=== PATIENT | female | born 2000 | race Two or more races ===

== ENCOUNTER 2024-09-07 02:05 | Emergency (ER) | payer MEDICAID, SELFPAY ==
[2024-09-07 02:06] VITALS: BMI 35.5
--- NOTE | 2024-09-07 02:12 | PD.EDURI ---
Upper Respiratory Inf. RME/HPI General Chief Complaint: Flu Like Symptoms Stated Complaint: FEVER, COUGH, CONGESTION Time Seen by Provider: 09/07/24 02:14 Source: patient Arrival date/time: 09/07/24 02:05 24-year-old female with no known medical history presents to the emergency room with a chief complaint of fever, cough, congestion, nausea, vomiting x 2 days Mode of arrival: ambulatory Limitations: no limitations Related Data Previous Rx's ?Medication ?Instructions ?Recorded ibuprofen 800 mg tablet 800 mg PO TID PRN pain #30 tabs 02/08/22 gabapentin 300 mg tablet,extended 300 mg PO QPM #20 tabs 03/07/24 release 24 hr Allergies Allergy/AdvReac Type Severity Reaction Status Date / Time No Known Allergies Allergy Verified 03/07/24 19:51 Review of Systems Review of Systems Systems Reviewed: All systems reviewed, normal except as documented Constitutional Constitutional: Reports system reviewed and no additional complaints, except as documented, Reports body ache(s), Reports fatigue, Reports fever(s), Reports headache(s) and Reports weakness Eyes Eyes: Reports system reviewed and no additional complaints, except as documented, Denies blurry vision and Denies change in vision ENT Ears, Nose, Mouth, and Throat: Reports system reviewed and no additional complaints, except as documented, Denies otalgia, Reports headache(s), Denies nasal congestion, Denies throat swelling and Denies vertigo Cardiovascular Cardiovascular: Reports system reviewed and no additional complaints, except as documented, Denies chest pain, Denies dyspnea and Denies dyspnea on exertion Respiratory Respiratory: Reports system reviewed and no additional complaints, except as documented, Denies chest congestion, Reports cough, Denies dyspnea, Denies dyspnea on exertion and Denies wheezing Gastrointestinal Gastrointestinal: Reports system reviewed and no additional complaints, except as documented, Denies abdominal pain, Denies cramping, Denies nausea and Denies vomiting Genitourinary Genitourinary: Reports system reviewed and no additional complaints, except as documented Musculoskeletal Musculoskeletal: Reports system reviewed and no additional complaints, except as documented and Denies back pain Integumentary/Breasts Skin/Breast: Reports system reviewed and no additional complaints, except as documented and Denies wounds Neurologic Neurologic: Reports system reviewed and no additional complaints, except as documented, Denies confusion, Reports headache(s), Denies lack of coordination, Denies vertigo and Reports weakness Psychiatric Psychiatric: Reports system reviewed and no additional complaints, except as documented, Denies anxiety, Denies confusion, Denies depression, Denies paranoia, Denies suicidal ideation and Denies tactile hallucinations Endocrine Endocrine: Reports system reviewed and no additional complaints, except as documented and Reports fatigue Hematologic/Lymphatic Hematologic/Lymphatic: Reports system reviewed and no additional complaints, except as documented and Denies lymphadenopathy Allergic/Immunologic Allergic/Immunologic: Reports system reviewed and no additional complaints, except as documented, Denies throat swelling, Denies urticaria and Denies wheezing Past Medical History Past Medical History NEUROLOGIC: Positive Head Trauma (18yo had to get stitches); Negative Neurological Disorders or Seizures CARDIAC: Negative Cardiac Disorders or Congestive Heart Failure RESPIRATORY: Negative Chronic Obstructive Pulmonary Disease (COPD) GASTROINTESTINAL: Negative Gastrointestinal Disorders GENITOURINARY: Negative Genitourinary Disorders or Renal Disease REPRODUCTIVE: Negative Pelvic Inflammatory Disease MUSCULOSKELETAL: Positive Musculoskeletal Disorders and Scoliosis ENT: Positive Head Trauma (18yo had to get stitches) ENDOCRINE: Negative Endocrine Disorders, Diabetes Mellitus Type 1 or Diabetes Mellitus Type 2 HEMATOLOGIC: Negative Blood Disorders OTHER HISTORY: Negative Autoimmune Disease, Blood Transfusions, Blood Transfusion Reaction, Anesthesia Reactions, MRSA, Chicken Pox, Clostridium Difficile or Cancer Family History FAMILY HISTORY: Positive Family Surgery (sister); Negative Family Psychiatric Problems, Family Respiratory Disorders, Family Cardiac Disorders, Family Gastrointestinal Problems, Family Cancer or Family Anesthesia Reaction Social History SMOKING STATUS: Never smoker ED Exam General Limitations: Present no limitations General appearance: Present alert and in no apparent distress Head Head exam: Present atraumatic Eye Eye exam: Present normal appearance, PERRL and EOMI ENT ENT exam: Present normal exam, normal oropharynx and mucous membranes moist Neck Neck exam: Present normal inspection, full ROM and trachea midline Chest Chest inspection: Present normal inspection and symmetric chest wall rise Respiratory Respiratory exam: Present normal lung sounds bilaterally; Absent respiratory distress, wheezes, stridor, accessory muscle use or prolonged expiratory phase Cardiovascular Cardiovascular exam: Present regular rate, normal rhythm and normal heart sounds Abdominal Exam Abdominal exam: Present soft and normal bowel sounds Extremities Exam Extremities exam: Present normal inspection and full ROM Back Exam Back exam: Present normal inspection and full ROM Neurological Exam Neurological exam: Present alert, oriented X3 and CN II-XII intact Psychiatric Psychiatric exam: Present normal affect and normal mood Skin Skin exam: Present warm, dry, intact and normal color Course Quality Measures none Orders Category Date Time Status Bedside COVID-19 Antigen Test NOW Care 09/07/24 02:12 Completed Bedside Influenza A&B Antigen Test NOW Care 09/07/24 02:12 Completed Acetaminophen Tab [Tylenol Tab] Med 09/07/24 02:18 Discontinued 650 mg PO X1 ONE Ondansetron Odt [Zofran Odt] Med 09/07/24 02:18 Discontinued 4 mg PO X1 ONE Vital Signs Vital signs: Vital Signs Temperature 98.3 F 09/07/24 02:13 Pulse Rate 98 09/07/24 02:13 Respiratory Rate 18 09/07/24 02:13 Blood Pressure 151/120 H 09/07/24 02:13 Pulse Oximetry (%) 96 09/07/24 02:13 Oxygen Delivery Method Room Air 09/07/24 02:13 O2 saturation within normal limits Upper Respiratory Infection MDM Narrative MDM Narrative:: 24-year-old female with no known medical history presents to the emergency room with a chief complaint of fever, cough, congestion, nausea, vomiting x 2 days Patient is hemodynamically stable and nontoxic-appearing Patient has clear bilateral lung sounds with no wheezing or abnormal breath sounds. Patient tested positive for influenza B. Nausea and vomiting was controlled with Zofran patient was reevaluated 45 minutes later with significant improvement to her symptoms Patient was discharged and educated to follow-up with primary care provider return to the emergency room for any evidence of worsening signs or symptoms Patient data External records reviewed:: [facility] previous records Clinical information provided by:: patient Social determinants that could affect healthcare access:: none Patient has the following chronic illnesses:: No chronic illness How is presenting disease/condition affected by chronic disease/condition?: no chronic disease Evaluation data The following diagnostics were reviewed and interpreted by me:: lab results and radiology exam(s) Lab and/or radiology exams considered but not ordered:: Labs and radiology exams considered and ordered Interpretation Summary: N/A Medications / Prescriptions Medications or Prescriptions considered but not ordered:: Medication not given Medication administrations:: Medication Administration History Discontinued Medications Acetaminophen (Acetaminophen 325 Mg Tablet) 650 mg PO X1 ONE Stop: 09/07/24 02:19 Last Admin: 09/07/24 02:24 Dose: 650 mg Documented By: LUPE Ondansetron HCl (Ondansetron Odt 4 Mg Tabrap) 4 mg PO X1 ONE; Protocol Stop: 09/07/24 02:19 Last Admin: 09/07/24 02:24 Dose: 4 mg Documented By: CB Medication not given Consultations Consultation(s) initiated? (list below): No Diagnosis Upper Respiratory Differential Diagnosis: upper respiratory infection, sinusitis, viral infection, bronchitis and influenza Most likely diagnosis given after review of the tests above:: Influenza Admission Indicated Admission indicated?: not indicated Admission Request Was there a request for admission?: No Disposition Plan Disposition Plan: Discharge Discharge Attestation Discharge Attestation: The patient and all family members were given an opportunity to ask questions and understood the discharge instructions. Discharge instructions specifically effects, indications for sooner follow up or return to the emergency department, and the expected course of current diagnosis. Patient condition: Stable Discharge Plan Plan Patient Disposition: HOME (Self Care) Disposition Comment: Stable Prescriptions/Referrals Prescriptions/Med Rec: No Action ibuprofen 800 mg tablet 800 mg PO TID PRN (Reason: pain) Qty: 30 0RF gabapentin 300 mg tablet extended release 24 hr 300 mg PO QPM Qty: 20 0RF Referrals: Temporary Provider,ED [Primary Care Provider] - In 1 week Problem List Clinical Impression: Influenza Patient/Caregiver Discharge Instructions Education Materials: ED Influenza (Adult) Additional Instructions: Please follow-up with your primary care provider in the next 24 to 48 hours. Your influenza test was positive for influenza B. Please continue to take Tylenol and ibuprofen for fever management For any evidence of worsening signs or symptoms please return to the emergency room immediately Print Language: [place] Stand Alone Forms: Jazmine Award Info., Patient Portal Info Letter GRISELDA/LEE Supervising Physician PA/LEE Supervising Physician: Dr. Bustillo
[2024-09-07 02:13] VITALS: BP 138/102; BP 151/120; PULSE 98; RESP 18; TEMP 36.8; O2SAT 96
[2024-09-07] MEDS: ONDANSETRON ODT 4 MG TABRAP PO (02:24)
[2024-09-07] MEDS: ACETAMINOPHEN 325 MG TABLET 650 MG PO (02:24)
[2024-09-07 03:08] VITALS: BP 140/95
[2024-09-07 03:25] VITALS: RESP 18
== END 2024-09-07 03:25 | disposition home or self-care (01) ==
LOC: SERX 04:19
PROVIDERS: Emergency Provider Emergency Medicine; PCP Family Medicine
DX: J11.1 Influenza due to unidentified influenza virus with other respiratory manifestations (principal)
CPT/HCPCS: 80053; 81001; 81025; 83690; 85025; 87086; 87400; 87811; 99283; Q0162; A9270